=== PATIENT | female | born 1950 | race Caucasian/White ===

== ENCOUNTER → 2024-01-21 10:18 | Outpatient (REF) | payer MEDICARE, OTHER, SELFPAY | LOC: MRI 3T 10:18 | PROVIDERS: ATTENDING PHYSICIAN Internal Medicine Geriatric Medicine | DX: E78.2 Mixed hyperlipidemia (principal); M60.88 Other myositis, other site; I10 Essential (primary) hypertension; G89.29 Other chronic pain; R41.3 Other amnesia; K58.0 Irritable bowel syndrome with diarrhea; E73.9 Lactose intolerance, unspecified; E55.9 Vitamin D deficiency, unspecified | CPT/HCPCS: 70551 ==